=== PATIENT | male | born 1965 | race Caucasian/White ===

== ENCOUNTER 2017-04-20 07:16 | Outpatient (CLI) ==
[2015-08-19 07:38] VITALS: BMI 26.4
--- NOTE | 2017-04-20 08:20 | US ---
EXAM: Ultrasound retroperitoneal complete. HISTORY: Hypertension. COMPARISON: None available. TECHNIQUE: Multiple morales scale and color Doppler images. FINDINGS: Right kidney measures 12.1 x 4.6 x 5 cm. The left kidney measures 10.2 x 5.9 x 4.1 cm. R ight kidney is normal. Left kidney contains a 0.8 cm echogenic focus in the midportion. There appea rs to be an exophytic hypoechoic, possibly anechoic, lesion off the lateral left renal cortex measuri ng 1.1 x 1 x 0.7 cm. There is no hydronephrosis. Urinary bladder is unremarkable. IMPRESSION: Possible left nephrolithiasis and small left renal cyst. Consider follow-up ultrasound in 6 months f or reassessment.
--- NOTE | 2017-04-20 08:20 | US ---
EXAM: Renal arterial Doppler History: Hypertension. Comparison: Renal ultrasound 04/20/2017 Technique: Multiple sonographic images through the kidneys were obtained. Color duplex Doppler was used to interrogate vascular flow. Findings: The right kidney measures 11.8 cm in long length demonstrating normal cortical echogenicity without e vidence for hydronephrosis, mass or shadowing calculus. The left kidney measures 10.7 cm in long length demonstrating normal cortical echogenicity without ev idence for hydronephrosis, mass or shadowing calculus. The bilateral renal artery peak systolic velocities are not elevated. The bilateral renal artery/aor tic ratios are not increased. The right renal resistive index is 0.55 and the left renal resistive index is 0.58 Impression: 1. Sonographically normal kidneys. 2. No significant hemodynamic stenosis of the bilateral renal arteries
== END 2017-04-20 07:17 | disposition home or self-care (01) ==
LOC: RAD 07:16
PROVIDERS: ATTEND Family Medicine
DX: I10 Essential (primary) hypertension (principal); Z12.5 Encounter for screening for malignant neoplasm of prostate; Z13.220 Encounter for screening for lipoid disorders
CPT/HCPCS: 36415; 76770; 80053; 80061; 82306; 84443; 85025